=== PATIENT | female | born 1990 | race African-American/Black ===

== ENCOUNTER 2016-08-19 14:56 | Emergency (ER) | payer OTHER ==
--- NOTE | ~2016-08-19 | EKG ---
PATIENT: POLLO SEYMOUR UNIT #: [id number] Ventricular Rate: 96 BPM Atrial Rate: 96 BPM P-R Interval: 136 ms QRS Duration: 68 ms Q-T Interval: 330 ms QTC Calculation(Bezet): 416 ms P [place]: 65 degrees Calculated R [place]: 76 degrees Calculated T [place]: 26 degrees Diagnosis Line: Normal sinus rhythm Diagnosis Line: Normal ECG Diagnosis Line: No previous ECGs available Diagnosis Line: Confirmed by FABRIZIO WILSON MD ([id number]) on 08/20/2016 Diagnosis Line: 4:14:21 PM INTERPRETING MD: STEVE WILLIS
--- NOTE | ~2016-08-19 | CR63 ---
[facility] A Service [facility] RADIOLOGY TEXT RESULTS PATIENT: POLLO SEYMOUR LOCATION: SED : 91 UNIT #: [id number] AGE: [address]: Jose Morillo MD SEX: F ORDER DR: [id number] [place] [id number] E MR#: [id number] Acc #: [id number] NAME: POLLO SEYMOUR : 1990 SEX: F STUDY DATE/TIME: 08/19/2016 16:01 UNIT: SED ROOM: STUDY DESCRIPTION: CR Chest 2 View Attending Physician: Jose Morillo M.D. Ordering Physician: Jose Morillo M.D. Primary Care Physician: Primary Care Physician No MEDICAL IMAGING REPORT This report is preliminary unless electronic signature is present. EXAM Chest x-ray HISTORY: Cough, nausea, chest pain and body aches for the past 2 days. TECHNIQUE 2 views the chest were obtained and compared with 04/17/2016 FINDINGS PA and lateral examination of the chest upright shows a good expansion of the parenchyma with a normal distribution of the pulmonary vascularity. There is no indication of congestion, effusion, infiltrate, tumor, or nodular density. The pleural reflections and diaphragmatic contours are normal. The cardiac silhouette and mediastinal anatomy is within normal limits. IMPRESSION Normal chest. Dictated by... Niles Monroy M.D. THIS IS AN ELECTRONICALLY VERIFIED REPORT Niles Monroy M.D. at 08/20/2016 3:42 PM RLF/watson TD: 08/20/2016 07:06 JOB #: [id number] [facility] A Service [facility] RADIOLOGY TEXT RESULTS PATIENT: POLLO SEYMOUR LOCATION: SED : 91 UNIT #: [id number] AGE: [address]: Jose Morillo MD SEX: F ORDER DR: MEDICAL IMAGING REPORT
[2016-08-19 14:30] LABS: INFLUENZA A POS (NEG); INFLUENZA B NEG (NEG)
[~2016-08-19 14:56] MED LIST: NO MEDICATIONS
== END 2016-08-19 17:15 | disposition home or self-care (01) ==
LOC: SED 14:56
PROVIDERS: Emergency Medicine
DX: J10.1 Influenza due to other identified influenza virus with other respiratory manifestations (principal); Z88.5 Allergy status to narcotic agent
CPT/HCPCS: 71020; 84703; 87651; 87804; 93005; 99283; 99284